=== PATIENT | male | born 1950 | race Caucasian/White ===

== ENCOUNTER 2021-03-01 02:53 | Outpatient (CLI) | payer OTHER, SELFPAY ==
[2021-03-01 11:55] LABS: Source Nasal/Nares
[2021-03-01 17:28] LABS: COVID-19 PCR Negative (Negative)
== END 2021-03-01 02:54 | disposition home or self-care (01) ==
LOC: LBO 02:53
PROVIDERS: PCP Family Medicine; Visit Provider Ophthalmology
DX: Z20.822 Contact with and (suspected) exposure to COVID-19 (principal); Z01.818 Encounter for other preprocedural examination
CPT/HCPCS: 87635

== ENCOUNTER 2021-03-04 06:45 | Day surgery (SDC) | payer OTHER, SELFPAY ==
--- NOTE | 2021-03-04 07:15 | W.ANESPRE ---
General Info Date of Service Date Performed: 03/04/21 Height: 5 ft 9 in Weight: 58.967 kg Body Mass Index (BMI): 19.2 Surgical Procedure: Operation Date: 03/04/21 08:40 Proposed Procedures Side Surgeon p Cataract Extraction with IOL Implant Right Usama Goddard MD Meds Allergies and Home Medications Allergies Allergy/AdvReac Type Severity Reaction Status Date / Time blue dye Allergy Severe Anaphylaxis Unverified 03/04/21 07:18 dutasteride Allergy Severe Anaphylaxis Unverified 03/04/21 07:18 finasteride Allergy Severe Anaphylaxis Unverified 03/04/21 07:18 Penicillins Allergy Severe Anaphylaxis Unverified 03/04/21 07:18 adhesive Allergy Mild Skin Rash Unverified 03/04/21 07:18 amoxicillin Allergy Unknown Unknown Unverified 03/04/21 07:18 diphenhydramine Allergy Unknown Unknown Unverified 03/04/21 07:18 oxybutynin Allergy Unknown Unknown Unverified 03/04/21 07:18 Sulfa Drugs Allergy Unknown Unknown Uncoded 03/04/21 07:18 Home Medication Medication Instructions Recorded ibuprofen 800 mg PO TID 02/28/21 levothyroxine 50 mcg PO DAILY 02/28/21 pilocarpine HCl 5 mg PO TID 02/28/21 tamsulosin 0.4 mg PO HS 02/28/21 testosterone cypionate 200 mg IM DIRECTED 02/28/21 [facility] Medical History Medical History Asymmetrical sensorineural hearing loss BPH (benign prostatic hyperplasia) Condyloma acuminata Dysphagia, unspecified Hx of hepatitis C Hx of non-Hodgkin's lymphoma Hypothyroidism Left shoulder pain Radicular low back pain Salivary gland disturbance Testicular hypofunction Xerostomia Surgical History Surgical History (Updated 03/04/21 @ 07:24 by Joy Valerio) Hx of shoulder surgery right Tobacco Smoking/Tobacco Use Status: Former Tobacco Use Alcohol Alcohol Intake: never Substance Use Substance use type: does not use Vital Signs and Lab Results Lab Results Blood Type / Crossmatch: No Data to Display Complete Blood Count: No Data to Display Complete Metabolic Panel: No Data to Display Liver Function Panel: No Data to Display Coagulation Panel: No Data to Display Cardiac Panel: No Data to Display Arterial Blood Gas: No Data to Display Venous Blood Gas: No Data to Display Pancreas Panel: No Data to Display Thyroid Panel: No Data to Display Infectious Disease: Coronavirus (COVID-19)(PCR) Negative (Negative) 03/01/21 10:03 03/01/21 Coronavirus 2019 Source Nasal/Nares 03/01/21 10:03 03/01/21 Blood Cultures: No Data to Display Toxicology Panel: No Data to Display Anesthesia Assessment and Plan Anesthesia History Personal History: No History of Anesthesia Complications Family History: No Family History of Anesthesia Complications Exercise Tolerance Exercise Tolerance: Metabolic Equivalents>4 Pertinent Negatives Pertinent Negatives: No Symptoms of GERD, No Major Cardiovascular Symptoms or Complaints, No Major Pulmonary Symptoms or Complaints and No History of CVA/TIA Cardiac & Pulmonary Exam Cardiac Exam: Normal S1/S2 Heart Sounds Pulmonary Exam: Clear Bilateral Breath Sounds Airway Exam Known Difficult Airway: No Mallampati Class: 2 Mouth Opening: Normal (> 3cm) Thyromental Distance: Greater than 3 cm Neck Range of Motion: Full ROM Neck Circumference: Normal Teeth Condition: Loose or Chipped, Advised tooth loss possible given current condition (indicate tooth) (lower incisors) and Removable Dentures/Plates Upper ASA Classification ASA Score: ASA 3 Emergency Case?: No NPO Status NPO Status: NPO Clears >2 hours, Solids >8 hours Anesthesia Plan Resuscitation Status: Full Code Anesthesia Technique: MAC Anesthesia Airway Planned: Natural Airway Monitors Used: Standard Monitors
[2021-03-04] MEDS: Tropicam./Phenyleph. (1/2.5%) 5 ML BTL ×3 (07:21→07:39)
[2021-03-04 07:25] VITALS: BMI 19.2
[2021-03-04 07:32] VITALS: BP 129/81; PULSE 80; RESP 16; TEMP 36.2; O2SAT 97
[2021-03-04] MEDS: Tetracaine 0.5% 4 ML BTL (08:35)
[2021-03-04] MEDS: Balanced Salt Soln.-PLUS 500 ML BAG (08:35)
[2021-03-04] MEDS: Povidone-Iodine Ophth 30 ML BTL (08:35)
[2021-03-04] MEDS: Lidocaine 2% Jelly 6 ML SYR (08:35)
[2021-03-04] MEDS: Lidocaine 1% Pres-Free 5 ML VIAL (08:36)
[2021-03-04] MEDS: Duovisc Viscoelastic System EACH 1 EACH (08:37)
[2021-03-04] MEDS: Trypan Blue 0.06% 0.5 ML SYR (08:41)
--- NOTE | 2021-03-04 08:47 | W.ANESPOSTOP ---
Postoperative Evaluation Date, Time and Location Date Performed: 03/04/21 Time Performed: 09:02 Patient Location: Day Surgery Unit Vital Signs Most Recent Imported Vital Signs: Most Recent Vital Signs Temp Pulse Resp BP Pulse Ox 36.2 C L 80 16 129/81 97 03/04/21 07:32 03/04/21 07:32 03/04/21 07:32 03/04/21 07:32 03/04/21 07:32 Most Recent Manually Entered Vital Signs: Adult Blood Pressure: 126/87 Heart Rate: 66 Respirations: 16 Oxygen Saturation (%): 97 Temperature (C): 36.6 C Pain Score (0-10 Scale): 0 Assessment Mental Status: Awake (Alert & Oriented to Patient Baseline) Airway and Respiratory Function: Patent airway with normal (patient baseline) respiratory exam Cardiovascular Function: Hemodynamically Stable Hydration Status: Adequately Hydrated Nausea & Vomiting: No Nausea or Vomiting Pain: Pt. Denies Any Pain Peripheral Nerve Block: Other (Local by Dr. Goddard)
--- NOTE | 2021-03-04 09:01 | W.PM.DSUDISC ---
Discharge Plan Disposition Patient Disposition: HOME Condition: Good Discharge Details Attending Provider: Usama Goddard Primary Care Provider: Joycelyn Callahan Home Meds and New Rx's Prescriptions: No Action pilocarpine HCl 5 mg Tablet 5 mg PO TID RF: 0 tamsulosin 0.4 mg Capsule 0.4 mg PO HS RF: 0 levothyroxine 50 mcg Tablet 50 mcg PO DAILY RF: 0 testosterone cypionate 200 mg/mL Oil 200 mg IM DIRECTED RF: 0 ibuprofen 800 mg Tablet 800 mg PO TID RF: 0 Discharge Instructions Stand Alone Forms: Post-op Topical Cataract, Manuelito Sweet (DSU) Discharge Orders Discharge Orders: Discharge Order (Routine); Ordered 03/04/21 Ordered By: Usama Goddard DS: Diagnosis Discharge Diagnosis (1) Nuclear sclerotic cataract of right eye: Status: Resolved (2) History of vitrectomy: Status: Chronic
[2021-03-04 09:02] VITALS: BP 126/87; PULSE 66; RESP 16; TEMPC 36.6; O2SAT 97
--- NOTE | 2021-03-04 09:03 | W.PM.OP ---
Date of service: 03/04/21 Time of Service: 09:03 Operative Note Operative Note DATE OF PROCEDURE: 03/04/21 PRE-OP DIAGNOSIS: Dense nuclear cataract, right eye Status post pars plana vitrectomy/membrane peeling, right eye Poor red reflex, right eye secondary to cataract POST-OP DIAGNOSIS: same PROCEDURE: Cataract extraction using phacoemulsification with intraocular lens implantation, right eye, using capsular staining with Vision Blue SURGEON: Usama Goddard ANESTHESIA TYPE: Local By Surgeon and MAC Refer to Anesthesia Record PATHOLOGY: none sent COMPLICATIONS: None Patient was transported to: same day Patient's condition: stable Implants: [employer] / [employer] Tecnis [id number] Indications: Progressive visual loss due to cataract, right eye Procedure Description: CATARACT SURGERY OPERATIVE REPORT PREOPERATIVE DIAGNOSIS: 1. Dense nuclear cataract, right eye 2. Poor red reflex secondary to #1 3. Status post vitrectomy/membrane peeling, right eye POSTOPERATIVE DIAGNOSIS: Same OPERATION: 1. Cataract extraction using phacoemulsification with posterior chamber intraocular lens implant, right eye. 2. Capsular staining with Vision Blue IOL: IOL Bag Press Operator/Model: Gary & Gary / SIDNEY Tecnis [id number] IOL Power: + 17.5 diopters IOL Serial Number: [id number] Optic Diameter: 6.0mm Haptic/Overall Diameter: 13.0mm PHACO INFO: John NeurOpurion Vision System with OZil and Active Fluidics Cumulative Dispersed Energy (CDE): 11.17 seconds SURGEON: Usama Goddard MD, TOBI ANESTHESIA: Monitored Anesthesia Care (MAC), with local sub-tenon's anesthetic infiltration COMPLICATIONS: None SPECIMENS: None INDICATIONS FOR PROCEDURE: The patient is a 70-year-old gentleman who has poor central visual acuity in his 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 He has recently undergone vitrectomy and membrane peeling of the right eye. He has now developed a dense nuclear cataract in the right eye. Cataract surgery is offered an attempt to improve and maximize his vision. PROCEDURE: The correct surgical eye was identified and marked as the right eye and the pupil was dilated in the preoperative area using mydriatics and cycloplegics. The dilated pupil size was 6.0 mm. Oral sedation was administered in the form of an Imprimis MKO Melt (midazolam 3mg/ketamine 25mg/ondansetron 2mg). The patient was brought to the operating room where cardiopulmonary monitoring was instituted and surgical time-out was performed, confirming the correct operative eye and IOL power. Topical anesthesia was administered and ophthalmic povidone-iodine 5% was instilled into the conjunctival fornices. Lidocaine gel was applied to the cornea and the jarrell-ocular area was prepped with Betadine 10% solution and draped in the usual sterile fashion for intraocular surgery, including an aperture drape. A Tegaderm transparent film dressing was cut in half and used to cover the lashes and lid margins. Care was taken to sequester the lashes and lid margins under the Tegaderm dressing. A lid speculum was placed between the lids of the operative eye and the Fletcher-Bennie operating microscope was maneuvered into position. Nicolas scissors were then used to make a conjunctival buttonhole approximately 6mm posterior to the limbus in the inferonasal quadrant. Blunt dissection was carried out to expose bare sclera, and a blunt-tipped sub-tenon?s anesthesia cannula was introduced and passed posteriorly along the globe where non-preserved plain lidocaine was injected into posterior sub-Tenon?s space. A sideport knife was used to make a paracentesis port inferotemporally. Intraocular phenylephrine/lidocaine was injected into the anterior chamber. Air was injected into the anterior chamber, followed by Vision Blue, which was painted over the anterior capsule and then irrigated out with BSS. The anterior chamber was filled with viscoelastic. A 2.4mm keratome knife was used to create a half-thickness groove at the limbus and then to construct a three-plane near-clear corneal tunnel extending 2.0mm into clear cornea superiortemporally. A flap was raised on the anterior capsule and capsulorhexis forceps were used to complete a continuous curvilinear capsulorhexis of 5.0 mm. Balanced salt solution was then used to perform cortical cleaving hydrodissection and nuclear hydrodelineation until the lens could be freely rotated within the capsular bag. The lens nucleus was then disassembled and removed within the capsular bag and iris plane using phacoemulsification. Residual cortical material was removed using the I/A handpiece. The anterior chamber was noted to be quite deep, typical of a vitrectomized eye. The posterior capsule was carefully polished to remove as much residual lens epithelial cells as safely possible. The capsular bag was then inflated and the anterior chamber deepened with viscoelastic. The lens implant described above was inserted into the capsular bag using the SIDNEY [place] Injector. A Kuglen hook was used to dial the IOL into position. Residual viscoelastic was then removed first from posterior to the IOL, then from the anterior chamber using the I/A handpiece. The lens implant was noted to center nicely within the capsular bag. The incisions were stromally hydrated, and the anterior chamber was reformed using BSS. Then 0.5cc of moxifloxacin 1.0mg/ml were injected into the capsular bag and anterior chamber. The incisions were checked with a Weck spear and found to be secure. Several drops of ophthalmic povidone-iodine 5% were then applied to the eye followed by two drops of Imprimis combination prednisolone/moxifloxacin/nepafenac solution. The drapes were removed and a clear plastic protective eye shield was placed over the eye. The patient was then returned to Same Day Surgery in stable condition.
[2021-03-04 09:04] VITALS: BP 117/65; PULSE 67; RESP 16; TEMP 36.6; O2SAT 97
[2021-03-04 09:32] VITALS: BP 118/76; PULSE 78; RESP 16; TEMP 36.6; O2SAT 97
== END 2021-03-04 09:41 | disposition home or self-care (01) ==
PROVIDERS: PCP Nurse Practitioner Primary Care; Visit Provider Ophthalmology
PROC: (CPT 66984; principal; 2021-03-04 08:30)
DX: H25.11 Age-related nuclear cataract, right eye (principal)
CPT/HCPCS: 66984; V2632; J0171